=== PATIENT | female | born 1990 | race Caucasian/White ===

== ENCOUNTER 2023-01-14 13:47 | Emergency (ER) | payer OTHER, SELFPAY ==
--- NOTE | ~2023-01-14 | XR_ITS ---
XR foot LT min 3V DATE: 01/14/2023 14:35 INDICATION: Left foot pain after dropping wood on to the foot TECHNIQUE: 4 views COMPARISON: None FINDINGS: No fracture or dislocation, periosteal reaction or bone destruction. Joint spaces are prese rved. IMPRESSION: Negative Reviewed, dictated and finalized at location B. IMPRESSION: Negative
[2023-01-14 14:03] VITALS: BP 144/82; PULSE 88; RESP 16; TEMP 37.2; O2SAT 100
--- NOTE | 2023-01-14 15:30 | ED.LOWEXIN ---
HPI - Extremity Injury (Lower) General Chief Complaint: Extremity Injury, Lower Stated Complaint: left foot pain,cyst Time Seen by Provider: 01/14/23 15:22 Source: patient and RN notes reviewed Mode of arrival: ambulatory Limitations: no limitations History of Present Illness HPI Narrative: Patient presents today complaining of left foot pain. States she dropped a piece of wood on the dorsum of her left foot yesterday. Denies numbness or tingling. Currently rates her pain 7/10. Pain increases with weight-bearing. She is also complaining of Bartholin's abscess to her left labia. States that was present 1 month ago and she facilitated drainage with Sitz baths. States it is now back and very painful. Related Data Home Medications Medication Instructions Recorded Confirmed drospirenone (contraceptive) 4 mg 01/14/23 (28) tablet (Slynd) duloxetine 60 mg capsule,delayed mg PO 01/14/23 release omeprazole 01/14/23 Allergies Allergy/AdvReac Type Severity Reaction Status Date / Time cephalexin [From Keflex] Allergy Rash Verified 01/14/23 14:28 Review of Systems Review of Systems: CONSTITUTIONAL: Denies body aches, fever, chills, or sweats. EYES: Denies visual changes, redness, or discharge. ENT: Denies rhinorrhea, congestion, sore throat, or otalgia. CARDIOVASCULAR: Denies chest pain, palpitations, or edema. RESPIRATORY: Denies cough or dyspnea. GASTROINTESTINAL: Denies abdominal pain, nausea, vomiting, or diarrhea. GENITOURINARY: Denies dysuria or hematuria. + Bartholin cyst SKIN: Denies rash, itching, or wounds. MUSCULOSKELETAL: Denies back pain, or myalgia.+ left foot pain NEUROLOGIC: Denies headache, numbness, tingling, or weakness. PSYCH: Denies depression or anxiety. PMFSH Comments At time of signature, I have reviewed and agree with nursing past medical, surgical, social and family history unless otherwise noted. Please see nursing chart for further information. There is no relevant family history pertinent to the presenting complaint Exam Narrative: GENERAL: Well-appearing, well-nourished, and in no acute distress. HEAD: Normocephalic, atraumatic. EYES: EOMI. No redness or drainage. Conjunctivae normal. ENT: Mucous membranes pink and moist. NECK: Normal AROM. CHEST: No respiratory distress. : 1x1.5cm Flucutant abscess to the left upper labia. It is very soft with a very thin amount of skin covering the inner material. Tender to palpation. EXTREMITIES: Left foot pain: Ecchymosis over the entire dorsum of the foot. Tenderness to the medial dorsum. Minimal edema. Distal sensation intact. Capillary refill normal. Pedal pulse normal. Full range of motion of the ankle and toes. SKIN: Warm, dry, no rash. Capillary refill normal. Normal skin turgor. NEURO: No focal deficits. Alert and oriented x3. Gait steady. PSYCH: Normal affect. No signs of depression or anxiety. Course Course Level of Care: Express Care Visit Vital Signs Vital signs: Vital Signs Temperature 98.9 F 01/14/23 14:03 Pulse Rate 88 01/14/23 14:03 Respiratory Rate 16 01/14/23 14:03 Blood Pressure 144/82 H 01/14/23 14:03 Pulse Oximetry 100 01/14/23 14:03 Oxygen Delivery Room Air 01/14/23 14:03 Temperature 98.9 F 01/14/23 14:03 Pulse Rate 88 01/14/23 14:03 Respiratory Rate 16 01/14/23 14:03 Blood Pressure 144/82 H 01/14/23 14:03 Pulse Oximetry 100 01/14/23 14:03 Oxygen Delivery Room Air 01/14/23 14:03 Reviewed MDM - Extremity Injury (Lower) MDM Narrative Medical decision making narrative: X-ray is negative. Discussed [id number] treatment for foot pain. Patient agrees with plan. Abscess seems that it is almost ready to rupture on its own. Offered to Geovanny it, but she declines and would like to try Sitz baths to facilitate drainage. Will place her on clindamycin. Imaging Data Radiologist's impression: ITS Impressions Foot X-Ray 01/14/23 14:50 I
== END 2023-01-14 15:40 | disposition home or self-care (01) ==
PROVIDERS: Emergency Provider Nurse Practitioner
DX: N76.4 Abscess of vulva (principal); S90.32XA Contusion of left foot, initial encounter; W20.8XXA Other cause of strike by thrown, projected or falling object, initial encounter; N80.9 Endometriosis, unspecified
CPT/HCPCS: 73630; 99213; G0463